=== PATIENT | male | born 1960 | race Caucasian/White ===

== ENCOUNTER → 2016-09-19 | Outpatient (CLI) | payer BC ==
--- NOTE | 2016-09-19 18:29 | DI ---
ULTRASOUND OF 2 RIGHT-SIDED CHEST WALL MASSES, 09/19/2016 11:07 AM: Clinical History: Palpable mass in the right anterior chest medial to the sternum and superior to the nipple. There is a second mass located laterally in the mid axillary line above the level of the nip ple. The patient is not certain how long these lesions have been present because he only identified o n after he had lost 25 pounds of weight by intention. Previous Exam: None at this facility. 2-D real-time imaging with color Doppler ultrasound is performed with the high-resolution linear ray probe. The lesion in the anterior right chest just medial to the sternum is a saucer-shaped collectio n of tissue that has the sonographic appearance of fatty tissue with a "capsule". This lies in the martin bcutaneous fat superficial to the pectoralis major muscle. The lesion is a circular shaped biconvex f atty lesion measuring 10 mm in maximum thickness in the center of the lesion with a diameter of appro ximately 45 mm. Color Doppler ultrasound shows minimal flow within the fatty tissue. The second small er lesion is located toward the lateral aspect of the chest were inferiorly. It also has the appearan ce of fat tissue with a "capsule". This lesion measures approximately 20 x 27 x 7 mm. This lesion is also biconvex and shows minimal flow. Readin. 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 Obviously, liposarcoma cannot entirely be excluded. The patient probably does not have an accurate estimate of the length of time these lesions have been present because he indicated he had recently lost 25 pounds of weight through exercise. He noted pre sence of these lesions only after he lost substantial weight. Therefore we cannot be certain as to ho w long these lesions have been present and whether they may be growing. 2. Both lesions can be monitored by the patient and repeat ultrasound can be performed even with a n eedle core biopsy if there is concern that the lesions are growing.
== END ==
LOC: US 11:03
PROVIDERS: ATTEND Family Medicine
DX: R22.2 Localized swelling, mass and lump, trunk (principal)
CPT/HCPCS: 76604

== ENCOUNTER → 2016-09-19 | Outpatient (CLI) | payer BC ==
[2016-09-19 11:27] LABS: HEMATOCRIT 48.4 % (42.0-52.0); MEAN CORPUSCULAR HEMOGLOBIN 31.3 PG (27-31); MEAN CORPUSCULAR HGB CONC 33.1 g/dL (33-37); MEAN CORPUSCULAR VOLUME 94.5 FL (80-90); RED BLOOD COUNT 5.12 10^6/uL (4.70-6.10)
[2016-09-19 11:53] LABS: BLOOD UREA NITROGEN 8 mg/dL (7-22); CALCIUM 9.6 mg/dL (8.7-10.7); EST GLOMERULAR FILTRATION > 60 (>60 ml/min/1.73m(2)); SERUM ALBUMIN 4.3 g/dL (3.5-4.8)
== END ==
LOC: MOB LAB 10:18
PROVIDERS: ATTEND Family Medicine
DX: R53.82 Chronic fatigue, unspecified (principal); R03.0 Elevated blood-pressure reading, without diagnosis of hypertension; F51.01 Primary insomnia
CPT/HCPCS: 36415; 80053; 84443; 85027

== ENCOUNTER → 2016-10-17 | Outpatient (CLI) | payer BC ==
--- NOTE | 2016-10-17 16:07 | DI ---
PA /LATERAL CHEST X-RAY, 10/17/2016 10:04 AM : Clinical History: Abnormal breath sounds. Previous Exam: 03/28/2008. There is no acute soft tissue or bony abnormality. The patient is status post resection of the latera l head of the right clavicle. Heart size is normal. Both lung apices are clear. No apical lung mass i s seen and there is no destruction of the upper ribs on either side. Mediastinal structures are laurence l. There are no pulmonary nodules. Reading: Normal chest x-ray.
--- NOTE | 2016-10-17 22:58 | DI ---
RIGHT SHOULDER, 10/17/2016 10:04 AM: Clinical History: Pain in the right axilla. Previous Exam: 06/29/2014. 3 views are submitted. There is no acute soft tissue, osseous, or joint abnormality. The patient is s tatus post previous resection of the lateral head of the clavicle. The visualized portions of the rig ht lung including the apex are normal. Reading: Status post resection of the lateral head of the clavicle. The exam is otherwise normal.
== END ==
LOC: RAD 15:38
PROVIDERS: ATTEND Family Medicine
DX: R09.89 Other specified symptoms and signs involving the circulatory and respiratory systems (principal); M79.621 Pain in right upper arm
CPT/HCPCS: 71020; 73030

== ENCOUNTER → 2016-11-14 | Outpatient (CLI) | payer BC ==
--- NOTE | 2016-11-14 13:03 | DI ---
CT CHEST W/CONTRAST,11/14/2016 7:35 AM: Clinical History: Intended weight loss. Previous Exam: None at this facility. Findings: Multiple helically acquired CT images are obtained through the chest following the intravenous admini stration of contrast, and demonstrate clear lungs bilaterally without nodule. The thyroid is unremarkable. The aortic arch is unremarkable. There is no mediastinal lymphadenopathy. Coronary artery calcifications are seen. The skeletal structures are unremarkable. The upper abdomen is also unremarkable. Impression: No CT evidence of malignancy.
--- NOTE | 2016-11-14 13:05 | DI ---
CT ABD W/CN AND PELVIS W/CN,11/14/2016 7:35 AM: Clinical History: Unintended weight loss. Previous Exam: July 02, 2009 Findings: Multiple helically acquired CT images are obtained through the abdomen and pelvis following the admin istration of oral and intravenous contrast, and demonstrate a normal-appearing urinary bladder. There is no free air nor free fluid. The appendix is normal. There is no mesenteric nor retroperitoneal lymphadenopathy. The urinary bladder is unremarkable. The liver, gallbladder, spleen, pancreas, adrenals and kidneys are unremarkable. Moderate stool is seen throughout the colon. Large and small bowel loops are unremarkable. Skeletal structures are within normal limits, except for some facet arthropathy. Impression: No acute intra-abdominal pathology.
== END ==
LOC: CT 07:32 → LAB 07:32
PROVIDERS: ATTEND Family Medicine
DX: Z01.812 Encounter for preprocedural laboratory examination (principal); R63.4 Abnormal weight loss
CPT/HCPCS: 36415; 71260; 74177; 82565; 84520